=== PATIENT | male | born 1995 | race Caucasian/White ===

== ENCOUNTER 2023-10-28 20:33 | Emergency (ER) | payer MEDICARE ==
[~2023-10-28] VITALS: Ht 157.5 cm; Wt 62.0 kg
[2023-10-28 20:35] VITALS: O2SAT 100
[2023-10-28] MEDS: LORAZEPAM 2MG/ML INJ IM ONE (21:00)
[2023-10-28] MEDS: HALOPERIDOL LACTATE 5MG/ML VIAL IM ONE (21:00)
[2023-10-28 21:28] LABS: CHLORIDE 105 mEq/L (98-107); POTASSIUM 3.4 mEq/L (3.5-5.1); SODIUM 140 mEq/L (136-145)
[2023-10-28 21:29] LABS: CALCIUM 10.9 mg/dL (8.7-10.4); CARBON DIOXIDE 22 mEq/L (21-32)
[2023-10-28 21:30] LABS: HEMATOCRIT. 49.4 % (42.0-52.0); HEMOGLOBIN. 16.2 g/dL (14.0-18.0); MEAN CORPUSCULAR HEMOGLOBIN 30.5 pg (28.0-32.0); MEAN CORPUSCULAR HGB CONC 32.9 g/dL (31.0-37.0); MEAN CORPUSCULAR VOLUME 92.7 fL (80.0-94.0); MEAN PLATELET VOLUME 8.4 fl (7.4-10.4); PLATELET 266 x1000/uL (130-400); RED BLOOD CELL COUNT 5.33 mill/uL (4.7-6.1); RED CELL DISTRIBUTION WIDTH 14.3 % (11.6-14.6); WHITE BLOOD COUNT 21.7 x1000/uL (4.5-11.0)
[2023-10-28 21:34] LABS: CREATININE 1.4 mg/dL (0.6-1.3); GLUCOSE 82 mg/dL (70-105); UREA NITROGEN BLOOD 16 mg/dL (9-23)
[2023-10-28 21:36] LABS: ACETAMINOPHEN < 2 ug/mL (10-30)
[2023-10-28 21:38] LABS: DIFFERENTIAL COMMENT 1; ETHANOL BLOOD < 10 mg/dL (<10)
[2023-10-28 22:53] LABS: PLATELET ESTIMATE NORMAL
[2023-10-29 02:06] LABS: CLARITY URINE CLOUDY (CLEAR); COLOR URINE DARK YELLOW (YELLOW); GLUCOSE URINE NEGATIVE (NEGATIVE); KETONES URINE 3+ (NEGATIVE); LEUKOCYTE ESTERASE URINE NEGATIVE (NEGATIVE); NITRITE URINE NEGATIVE (NEGATIVE); OCCULT BLOOD URINE NEGATIVE (NEGATIVE); PH URINE 5.5 (4.5-8.0); PROTEIN URINE 3+ (NEGATIVE)
[2023-10-29 02:19] LABS: *AMPHETAMINES SCREEN URINE PRESUMPTIVE POSITIVE (NEGATIVE); *BARBITURATES SCREEN URINE NEGATIVE (NEGATIVE); *BENZODIAZEPINES SCREEN URINE NEGATIVE (NEGATIVE); *COCAINE SCREEN URINE NEGATIVE (NEGATIVE); METHADONE URINE SCREEN NEGATIVE (NEGATIVE); OPIATES URINE SCREEN NEGATIVE (NEGATIVE); PHENCYCLIDINE URINE SCREEN PRESUMTIVE POSITIVE (NEGATIVE)
[2023-10-29 02:20] LABS: CANNABINOID URINE SCREEN PRESUMPTIVE POSITIVE (NEGATIVE)
[2023-10-29 03:13] LABS: RBC URINE 0-2 /hpf (0-2); SQUAMOUS EPITHELIAL CELL URINE FEW /lpf (RARE/1+)
[2023-10-29 03:14] LABS: BACTERIA URINE NONE SEEN
[2023-10-29 09:30] VITALS: BP 118/68; PULSE 75; RESP 16; TEMP 98.3
== END 2023-10-29 10:30 | disposition home or self-care (01) ==
LOC: ER 20:33
DX: R46.2 Strange and inexplicable behavior (principal); R45.1 Restlessness and agitation; Z98.890 Other specified postprocedural states; Z20.822 Contact with and (suspected) exposure to COVID-19
CPT/HCPCS: 80048; 80307; 80329; 80320; 85025; 36415; 96372; 99284; 80305; 81003; 87426; J1630; J2060; Z7610; G0480